=== PATIENT | male | born 1950 ===

== ENCOUNTER → 2023-05-28 10:26 | Outpatient (BNVA) | payer MEDICARE, OTHER, SELFPAY | PROVIDERS: PCP Nurse Practitioner Family; Visit Provider Nurse Practitioner Family | DX: M06.9 Rheumatoid arthritis, unspecified (principal); E11.9 Type 2 diabetes mellitus without complications; I10 Essential (primary) hypertension; R53.83 Other fatigue | CPT/HCPCS: 80053; 80061; 83036; 85025 ==

== ENCOUNTER → 2023-06-17 14:02 | Outpatient (BNVA) | payer MEDICARE, OTHER, SELFPAY | PROVIDERS: PCP Nurse Practitioner Family; Visit Provider Nurse Practitioner Family | DX: M05.79 Rheumatoid arthritis with rheumatoid factor of multiple sites without organ or systems involvement (principal) | CPT/HCPCS: 86140; 86431 ==

== ENCOUNTER 2023-06-22 14:33 | Outpatient (CLI) | payer MEDICARE, SELFPAY ==
--- NOTE | 2023-06-22 14:40 | XRR_ITS ---
PROCEDURE INFORMATION: Exam: XR Right Hand Exam date and time: 06/22/2023 2:44 PM Age: 73 years old Clinical indication: Pain; Hand; Bilateral; Additional info: M05.79 - rheumatoid arthritis with rheumatoid factor of m. . . TECHNIQUE: Imaging protocol: Radiologic exam of the right hand. Views: 3 or more views. COMPARISON: No relevant prior studies available. FINDINGS: Bones/joints: Moderate arthritis right 5th PIP joint. Mild arthritis right 3rd PIP and D IP joints with periarticular erosions involving these 2 joints. Mild arthritis right 2nd D IP joint with small periarticular erosion. Otherwise, unremarkable. Soft tissues: Otherwise, unremarkable soft tissues. Vasculature: Arterial calcification. XR/XR hand RT min 3V* [id number] IMPRESSION: 1. Arthritis as above. 2. Additional details as above.
--- NOTE | 2023-06-22 14:40 | XRR_ITS ---
PROCEDURE INFORMATION: Exam: XR Left Hand Exam date and time: 06/22/2023 2:44 PM Age: 73 years old Clinical indication: Pain; Hand; Bilateral; Additional info: M05.79 - rheumatoid arthritis with rheumatoid factor of m. . . TECHNIQUE: Imaging protocol: Radiologic exam of the left hand. Views: 3 or more views. COMPARISON: No relevant prior studies available. FINDINGS: Bones/joints: Severe arthritis left 5th PIP joint. Moderate arthritis left 4th PIP joint and left 2nd metacarpophalangeal joint. Mild arthritis left 2nd, 4th, and 5th DIP joints and the 1st left carpometacarpal articulation. A few mm lateral subluxation of the base of the 1st metacarpal. A few mm medial and palmar subluxation of the base of the left 2nd proximal phalanx. Otherwise, unremarkable. Soft tissues: Otherwise, unremarkable soft tissues. Vasculature: Arterial calcification. XR/XR hand LT min 3V* [id number] IMPRESSION: 1. Arthritis as above. 2. No other acute findings.
== END 2023-06-22 14:34 | disposition home or self-care (01) ==
LOC: RAD 14:37
PROVIDERS: PCP Nurse Practitioner Family; Visit Provider Nurse Practitioner Family
DX: M06.842 Other specified rheumatoid arthritis, left hand (principal); M06.841 Other specified rheumatoid arthritis, right hand
CPT/HCPCS: 73130

== ENCOUNTER 2023-10-12 13:00 | Outpatient (CLI) | payer MEDICARE, SELFPAY ==
--- NOTE | 2023-10-12 13:10 | USCV_ITS ---
Yahir Mccracken Age: 73 Gender: M : 1950 Exam Date: 10/12/2023 13:48 Ordering Phys: Clement De La Garza DO Technologist: [place] [facility] [place]: [place] pain PROCEDURES: The venous duplex Doppler examination of both lower extremities was performed in the standard fashion. The following venous structures were evaluated: common femoral vein, profunda vein, proximal portion of the greater saphenous vein, superficial femoral vein, and the popliteal vein. FINDINGS: Normal 2-D Doppler and augmentation and compressibility throughout the lower extremity venous structures. Additional imaging through the proximal calf veins also reveals no thrombus. Limited evaluation of the greater saphenous vein is patent with no thrombus. CONCLUSIONS No DVT bilateral lower extremities. Dr. Monse Anthony DO (Electronically Signed) Final Date: 12 October 2023 16:13 S
== END 2023-10-12 13:03 | disposition home or self-care (01) ==
PROVIDERS: PCP Nurse Practitioner Family; Visit Provider Family Medicine
DX: M79.604 Pain in right leg (principal)
CPT/HCPCS: 93970

== ENCOUNTER → 2023-11-02 14:22 | Outpatient (BNVA) | payer MEDICARE, SELFPAY | PROVIDERS: PCP Nurse Practitioner Family; Visit Provider Nurse Practitioner Family | DX: L29.0 Pruritus ani (principal) | CPT/HCPCS: 87177; 87209 ==

== ENCOUNTER → 2024-01-01 11:16 | Outpatient (BNVA) | payer MEDICARE, SELFPAY | PROVIDERS: PCP Nurse Practitioner Family; Visit Provider Nurse Practitioner Family | DX: M10.9 Gout, unspecified (principal); N39.0 Urinary tract infection, site not specified; R39.9 Unspecified symptoms and signs involving the genitourinary system | CPT/HCPCS: 81000; 84550; 87077; 87086; 87184 ==

== ENCOUNTER 2024-01-22 12:30 | Emergency (ER) | payer MEDICARE, SELFPAY ==
[2024-01-22] VITALS (9 sets, daily range): BP systolic 113–168; BP diastolic 68–95; PULSE 70–106; RESP 14–18; TEMP 37.3–37.9; O2SAT 92–99; BMI 27.3
--- NOTE | 2024-01-22 | USCV_ITS ---
Filipe Mccracken Age: 73 Gender: M : 1950 Exam Date: 01/22/2024 13:56 Ordering Phys: Mary Perez Technologist: USR [place] [facility] [place]: Risk Factors: Previous Vascular Surgery: RIGHT LEFT Waveform Velocity (cm/s) Velocity (cm/s) Waveform Triphasic 81.0 Iliac Prox Triphasic 100.0 Iliac Mid 99.3 Iliac Distal 88.0 AIRCRAFT REFUELLER 81.0 SFA Prox 81.0 SFA Mid 43.0 SFA Dist 78.0 POP 12.0 CHART COMPUTER 12.0 DPA FINDINGS Mild to moderate diffuse plaques in the iliac, femoral and popliteal arteries on the right side. Low amplitude monophasic waveforms in the posterior tibial and dorsalis pedis arteries on the right side CONCLUSIONS 1. Abnormal Doppler waveforms and velocities in the right infrapopliteal vessels suggesting high-grade stenosis in the popliteal infrapopliteal region. 2. Mild to moderate diffuse plaque in the iliac and femoral arteries on the right side with a normal Doppler waveforms and velocities, suggesting no significant arterial obstruction in at these vessels results Consider CTA or peripheral angiogram to better evaluate the arteries [facility] Final Radiology Report Call: [phone] assistance Online chat: [email or web address] Name: FILIPE MCCRACKEN Age: 73Years M Date: 01/22/2024 SSN: -- : 1950 Study: US DUPLEX EXTREM LOWER ARTERIES UNILAT OR [facility] Requesting Physician: Mary Perez Images: [id number] Add l Studies: Provided Clinical History: cold/diminished pulses CONFIDENTIALITY STATEMENT This report is intended only for use by the referring physician, and only in accordance with law. If you received this in error, call [phone]. Page 1 of 1 PROCEDURE INFORMATION: Exam: US Duplex Right Lower Extremity Arteries Or Arterial Bypass Grafts Exam date and time: 01/22/2024 1:56 PM Age: 73 years old Clinical indication: Pain; Leg, upper and leg, lower; Right; Additional info: Cold/diminished pulses TECHNIQUE: Imaging protocol: Right Real-time duplex scan of the arteries or arterial bypass grafts of the right lower extremity with 2-D drake scale, color Doppler flow and spectral waveform analysis. Images documented and saved. COMPARISON: No relevant prior studies available. FINDINGS: Right common femoral artery: No occlusion or significant stenosis. Normal waveform. No pseudoaneurysm in the inguinal region. Right superficial femoral artery: No occlusion or significant stenosis. Normal waveform. Right popliteal artery: No occlusion or significant stenosis. Normal waveform. Right calf/foot arteries: The right posterior tibial artery is occluded. Soft tissues: No hematoma or collection. IMPRESSION: Occluded posterior tibial artery. Thank you for allowing us to participate in the care of your patient. Dictated and Authenticated by: Mikel Lees MD Dr Achenkunju George MD [facility] Edited by: CV Personnel Generalist Manager (Electronically Signed) Final Date: 22 January 2024 15:49 Amended: 24 January 2024 07:10 C
--- NOTE | 2024-01-22 12:59 | ED_ITS ---
Documented by User: TEODORA Montaño 01/22/24 16:53 HPI - General Adult 2 General: Chief complaint: Extremity Problem,Nontraumatic Stated complaint: left arm pain Time Seen by Provider: 01/22/24 12:47 Source: patient Mode of arrival: EMS Limitations: no limitations History of Present Illness: Patient is a 73-year-old male presents to ED today via EMS for evaluation of joint pains and weakness to right leg. Patient first tells me he is here for complaints of gout/joint pains. He states he is having pain to his bilateral wrists, feet and ankles, bilateral shoulders, and left arm. Most of pain to left arm/wrist currently. Was recently placed on colchicine which helped temporarily but now pain is back. History of rheumatoid arthritis as well. He states he has had pain to these areas for a long time (years) but states they will flareup. Patient states his joint pain at this time is the same pain that he has always had although left wrist is worse. He has been on chronic steroids for the RA. When asked why he called an ambulance earlier today, he tells me that he was attempting to get out of bed and accidentally slid down the bed and onto the floor and was too weak to get up. He states he normally walks in his home with the help of a walker. He feels like the weakness is mainly to his right leg currently. Does report generalized leg weakness for a while now . Patient overall is a very poor historian. Onset (ago): hour(s) Severity: moderate Relieving factors: none Exacerbating factors: none Associated symptoms: Deny chest pain, dyspnea, headache(s) or rash Treatments prior to arrival: none Related Data Previous Rx's Medication Instructions Recorded colchicine 0.6 mg tablet 0.6 mg PO BID 5 days #10 tabs 01/01/24 oxycodone 10 mg tablet 10 mg PO Q12H PRN pain 30 days #60 01/02/24 tabs ciprofloxacin HCl 500 mg tablet 500 mg PO BID 7 days #14 tabs 01/04/24 prednisone 1 mg tablet 2 mg (2 x 1 mg) PO DAILY #60 tabs 01/20/24 Allergies Allergy/AdvReac Type Severity Reaction Status Date / Time No Known Allergies Allergy Verified 01/06/24 14:08 Review of Systems 2 Const: Denies: fever(s), chills or body aches Card: Denies: chest pain Resp: Denies: dyspnea GI: Denies: abdominal pain : Denies: flank pain or dysuria Musc: Reports: extremity pain and joint pain; Denies: neck pain, back pain, joint redness or joint warmth Skin/Breast: Denies: rash Neuro: Reports: weakness in extremities and difficulty walking; Denies: headache(s), numbness in extremities or sensory changes PFSH ED 2 PFSH: Medical History Irregular heart beat 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 Neuropathy bilateral hands, feet and legs Rheumatoid arthritis Surgical History History of spinal fusion L-3-5 History of bilateral knee replacement 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 Family History Father Lung cancer Social History Smoking and tobacco/nicotine status: former use of tobacco/nicotine Quit status (tobacco/nicotine): has quit using Former quit date comment: STOPPED 50YEARS AGO Alcohol intake: never Substance/Drug Use: never Adopted: No Caregiver/support person: No Lives independently: No Household members: spouse Marital status: service: No Current occupational status: retired and disabled Sexually active: Yes Do you think of yourself as: Straight/Heterosexual Current gender identity: Male Physical Exam 2 Const: COMMON NORMALS: no acute distress, average body habitus, patient oriented x3, no limitations, alert and well nourished GENERAL APPEARANCE: c ooperative ORIENTATION/CONSCIOUSNESS: Yes awake, Yes oriented to person, Yes oriented to place and Yes oriented to time HENMT: COMMON NORMALS: normocephalic and atraumatic HEAD & SCALP: normal to inspection, normocephalic and atraumatic Eye: GENERAL EYE: appearance normal, both eyes and all related structures Neck/C-Spine: COMMON NORMALS: full ROM GENERAL: Yes normal visual inspection Resp: COMMON NORMALS: normal respiratory effort and clear to auscultation bilaterally AUSCULTATION: clear to auscultation bilaterally Cardio: COMMON NORMALS: regular rate and regular rhythm RATE: regular rate RHYTHM: regular rhythm GI: COMMON NORMALS: Normal to inspection, nondistended, normoactive bowel sounds present, Soft to palpation and non-tender PALPATION: Yes Soft to palpation : COMMON NORMALS: Yes no CVA tenderness BLADDER/KIDNEY EXAM: Yes no CVA tenderness Back/Pelvis: COMMON NORMALS: no CVA tenderness and thoracic and lumbar spine normal to inspection Extremity: COMMON NORMALS: no joint enlargement, no clubbing, cyanosis or edema and no calf tenderness OTHER: bilateral feet are cool to the touch with the R being significantly colder; it does have dusky appearance with sluggish cap refill-patient states his feet are always cold; I can appreciate/palpate DP/PT pulses on L foot but cannot on R- having nurse grab doppler; he maintains full ROM of bilateral LEs; no evidence for infection; no edema; sensation appears intact Neuro: COMMON NORMALS: patient oriented x3, moves all extremities, no focal motor deficits and no sensory deficits noted SENSORIUM/ORIENTATION: Yes alert, Yes oriented to person, Yes oriented to place and Yes oriented to time Course 2 Consultations: Consultation #1: Dr. Cash-recommending CTA chest (evaluate for aneurysmal dilatation seen on CXR) as well as CTA abdominal aorta with runoff to evaluate for the right limb ischemia; agreed with decision to start heparin; will come evaluate patient here in ED Vital Signs: Vital signs: Vital Signs Temperature 100.2 F H 01/22/24 19:53 Pulse Rate 89 01/22/24 21:41 Respiratory Rate 18 01/22/24 21:41 Blood Pressure 123/79 01/22/24 21:41 Pulse Oximetry 93 01/22/24 21:41 Oxygen Delivery Me thod Room Air 01/22/24 21:41 MDM - General Adult Medical Decision Making Patient 73-year-old male with multiple complaints one of which is pain and weakness involving his right leg. Clinically patient's right foot is cool to the touch and dusky in appearance. I am not able to palpate DP/PT pulses. Arterial ultrasound obtained and shows an occluded posterior tibial artery. I did have Dr. Brink also consult on patient. Patient was started on heparin. I contacted Dr. Cash who is recommending CT imaging. He is CXR did show aneurysmal dilatation to his aorta. We will scan his chest and abdominal aorta with runoff and contacted Dr. Cash with these results. He is reportedly going to see patient here in the ED. patient also complaining of gout-like joint pain mainly to his left wrist. He reportedly has had similar symptoms previously. He has not had any recent injury/wounds to the joint. Based on history I would suspect this is gout over a septic arthritis. He does have a significant elevation in his white count. Some of this may be secondary to his recent steroid use. Some of this also could be secondary to stress associated with an ischemic limb. Chemistry showing elevated glucose with probable pseudohyponatremia. He is not a known diabetic. At this time we will transfer care to Dr. Brink as he has also assessed patient. Awaiting results of CT imaging at this time ES Medical Records I reviewed the patient's medical records. Lab Data I reviewed the patient's lab results. 01/22/24 14:00 01/22/24 14:00 Radiology Impressions Duplex Scan Lower Extremity Artery 01/22/24 13:30 IMPRESSION: Occluded posterior tibial artery. Chest X-Ray 01/22/24 14:10 IMPRESSION: No acute abnormality. Severe ectasia and tortuosity of the thoracic aorta with aneurysmal or near aneurysmal dilatation of the ascending aorta. Severe shoulder arthropathy bilaterally as above. Chest CTA 01/22/24 15:44 IMPRESSION: Multivessel atherosclerotic disease which involves the coronary arteries. No evidence for thoracic aorta dilatation or aneurysm. COMMENTS: Consistent with the [employer]'s Incidental Findings Committee white paper (J Am Libby Radiol 2018): Any incidental renal lesion less than 1 cm or classified as too small to characterize, or any incidental cystic renal lesion characterized as simple-appearing, is likely benign. No follow-up imaging is recommended for these lesions per consensus recommendations based on imaging criteria. Aorta w/Runoff CTA 01/22/24 15:48 IMPRESSION: Multivessel atherosclerotic disease with multiple regions of severe stenosis and occlusion as described in detail above. Wrist X-Ray 01/22/24 19:35 IMPRESSION: There is edema in the soft tissues. Laboratory Results WBC 24.69 10^3/uL (3.29-11.43) H 01/22/24 14:00 RBC 4.49 10^6/uL (3.85-5.65) 01/22/24 14:00 Hgb 12.50 g/dL (11.27-16.99) 12/06/24 14:00 Hct 40.6 % (37-53) 01/22/24 14:00 MCV 90.4 fl (82-101) 01/22/24 14:00 MCH 27.8 pg (27-33) 01/22/24 14:00 MCHC 30.8 g/dL (30-55) 01/22/24 14:00 RDW 14.3 % (12.1-15.1) 01/22/24 14:00 Plt Count 343 10^3/cmm (157-399) 01/22/24 14:00 MPV 8.7 fL (7.4-10.4) 01/22/24 14:00 Neut % (Auto) 86.6 % 01/22/24 14:00 Lymph % (Auto) 5.2 % 01/22/24 14:00 [place] % (Auto) 7.5 % 01/22/24 14:00 Eos % (Auto) 0.0 % 01/22/24 14:00 Baso % (Auto) 0.1 % 01/22/24 14:00 Neut # (Auto) 21.35 10^3/uL (1.8-7.7) H 01/22/24 14:00 Lymph # (Auto) 1.3 10^3/uL (0.8-4.8) 01/22/24 14:00 [place] # (Auto) 1.9 10^3/uL (0.2-0.9) H 01/22/24 14:00 Eos # (Auto) 0.0 10^3/uL (0.0-0.8) 01/22/24 14:00 Baso # (Auto) 0.0 10^3/uL (0.0-0.1) 01/22/24 14:00 Nucleated RBC % (auto) 0 % 01/22/24 14:00 Nucleated RBCs # 0.0 /100WBC 01/22/24 14:00 ESR 72 mm/hr (0-10) H 01/22/24 14:00 APTT 40.3 SECONDS (23.9-36.7) H 01/22/24 21:41 Sodium 127 mmol/L (136-145) L 01/22/24 14:00 Potassium 4.1 mmol/L (3.5-5.1) 01/22/24 14:00 Chloride 91 mmol/L (98-107) L 01/22/24 14:00 Carbon Dioxide 23 mmol/L (22-29) 01/22/24 14:00 Anion Gap 17.1 (5-19) 01/22/24 14:00 BUN 29 mg/dL (8-23) H 01/22/24 14:00 Creatinine 1.0 mg/dL (0.7-1.2) 01/22/24 14:00 GFR Calculation Not Reportable 01/22/24 14:00 Glucose 189 mg/dL (65-115) H 01/22/24 14:00 Calculated Osmolality 275 mOsm/kg (285-295) L 01/22/24 14:00 Lactic Acid 1.7 mmol/L (0.5-2.2) 01/22/24 14:00 Uric Acid 5.3 mg/dL (3.4-7.0) 01/22/24 14:00 Calcium 9.3 mg/dL (8.5-10.5) 01/22/24 14:00 Total Bilirubin 1.0 mg/dL (0.15-1.2) 01/22/24 14:00 AST 13 U/L (0-40) 01/22/24 14:00 ALT 11 U/L (0-41) 01/22/24 14:00 Alkaline Phosphatase 99 U/L (40-130) 01/22/24 14:00 C-Reactive Protein 231.5 mg/L (0.0-4.9) H 01/22/24 14:00 Total Protein 7.4 g/dL (6.6-8.7) 01/22/24 14:00 Albumin 3.6 g/dL (3.5-5.2) 01/22/24 14:00 Globulin 3.8 g/dL (1.3-4.6) 01/22/24 14:00 Procalcitonin 2.47 ng/mL (0-0.5) H 01/22/24 14:00 Urine Color [place] (Yellow) A 01/22/24 14:53 Urine Appearance Clear (CLEAR) 01/22/24 14:53 Urine pH 5.5 (5-7) 01/22/24 14:53 Ur Specific [place] 1.021 (1.005-1.030) 01/22/24 14:53 Urine Protein 2+ (Negative) A 01/22/24 14:53 Urine Glucose (UA) Negative (Normal) 01/22/24 14:53 Urine Ketones Negative (Negative) 01/22/24 14:53 Urine Blood Trace (Negative) A 01/22/24 14:53 Urine Nitrate Negative (Negative) 01/22/24 14:53 Urine Bilirubin Negative (Negative) 01/22/24 14:53 Urine Urobilinogen 1.0 mg/dL (Negative) 01/22/24 14:53 Ur Leukocyte Esterase Trace (Negative) A 01/22/24 14:53 Urine RBC 3-5 /hpf (0-2) 01/22/24 14:53 Urine WBC 0-5 /hpf (0-5) 01/22/24 14:53 Ur Squamous Epith Cells 0-5 /hpf (0-5) 01/22/24 14:53 Amorphous Sediment Not Reportable 01/22/24 14:53 Urine Bacteria 1+ /hpf (NONE) H 01/22/24 14:53 Hyaline Casts 6.61 /lpf 01/22/24 14:53 Discharge Plan Discharge Patient Disposition: Xfer Short-Term Hosp Clinical Impression: Infection of left wrist, PAD (peripheral artery disease) Condition: Stable Referrals: Ivory Diego FNP [Primary Care Provider] - Coding Level of Care Code ED Dental Sales Representative for Chg Fwd Documented by User: Patrica Brink MD 01/22/24 22:23 HPI - General Adult 2 General: Chief complaint: Extremity Problem,Nontraumatic Stated complaint: left arm pain Time Seen by Provider: 01/22/24 12:47 Related Data Previous Rx's Medication Instructions Recorded colchicine 0.6 mg tablet 0.6 mg PO BID 5 days #10 tabs 01/01/24 oxycodone 10 mg tablet 10 mg PO Q12H PRN pain 30 days #60 01/02/24 tabs ciprofloxacin HCl 500 mg tablet 500 mg PO BID 7 days #14 tabs 01/04/24 prednisone 1 mg tablet 2 mg (2 x 1 mg) PO DAILY #60 tabs 01/20/24 Allergies Allergy/AdvReac Type Severity Reaction Status Date / Time No Known Allergies Allergy Verified 01/06/24 14:08 PFSH ED 2 PFSH: Medical History Irregular heart beat 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 Neuropathy bilateral hands, feet and legs Rheumatoid arthritis Surgical History History of spinal fusion L-3-5 History of bilateral knee replacement 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 Family History Father Lung cancer Social History Smoking and tobacco/nicotine status: former use of tobacco/nicotine Quit status (tobacco/nicotine): has quit using Former quit date comment: STOPPED 50YEARS AGO Alcohol intake: never Substance/Drug Use: never Adopted: No Caregiver/support person: No Lives independently: No Household members: spouse Marital status: service: No Current occupational status: retired and disabled Sexually active: Yes Do you think of yourself as: Straight/Heterosexual Current gender identity: Male Course 2 Vital Signs: Vital signs: Vital Signs Temperature 100.2 F H 01/22/24 19:53 Pulse Rate 89 01/22/24 21:41 Respiratory Rate 18 01/22/24 21:41 Blood Pressure 123/79 01/22/24 21:41 Pulse Oximetry 93 01/22/24 21:41 Oxygen Delivery Me thod Room Air 01/22/24 21:41 MDM - General Adult Medical Decision Making Patient 73-year-old male with multiple complaints one of which is pain and weakness involving his right leg. Clinically patient's right foot is cool to the touch and dusky in appearance. I am not able to palpate DP/PT pulses. Arterial ultrasound obtained and shows an occluded posterior tibial artery. I did have Dr. Brink also consult on patient. Patient was started on heparin. I contacted Dr. Cash who is recommending CT imaging. He is CXR did show aneurysmal dilatation to his aorta. We will scan his chest and abdominal aorta with runoff and contacted Dr. Cash with these results. He is reportedly going to see patient here in the ED. patient also complaining of gout-like joint pain mainly to his left wrist. He reportedly has had similar symptoms previously. He has not had any recent injury/wounds to the joint. Based on history I would suspect this is gout over a septic arthritis. He does have a significant elevation in his white count. Some of this may be secondary to his recent steroid use. Some of this also could be secondary to stress associated with an ischemic limb. Chemistry showing elevated glucose with probable pseudohyponatremia. He is not a known diabetic. At this time we will transfer care to Dr. Brink as he has also assessed patient. Awaiting results of CT imaging at this time ES Patient presents here with peripheral artery disease aortic runoff did show disease has had pain for weeks did have him on a heparin drip here he also has concern for septic joint to the left wrist had spoke to Dr. Velazquez who recommended transfer for hand I have spoken to Ashley Ge will transfer there for higher level of care for vascular and hand surgery Lab Data 01/22/24 14:00 01/22/24 14:00 Radiology Impressions Duplex Scan Lower Extremity Artery 01/22/24 13:30 IMPRESSION: Occluded posterior tibial artery. Chest X-Ray 01/22/24 14:10 IMPRESSION: No acute abnormality. Severe ectasia and tortuosity of the thoracic aorta with aneurysmal or near aneurysmal dilatation of the ascending aorta. Severe shoulder arthropathy bilaterally as above. Chest CTA 01/22/24 15:44 IMPRESSION: Multivessel atherosclerotic disease which involves the coronary arteries. No evidence for thoracic aorta dilatation or aneurysm. COMMENTS: Consistent with the [place] [employer]'s Incidental Findings Committee white paper (J Am Libby Radiol 2018): Any incidental renal lesion less than 1 cm or classified as too small to characterize, or any incidental cystic renal lesion characterized as simple-appearing, is likely benign. No follow-up imaging is recommended for these lesions per consensus recommendations based on imaging criteria. Aorta w/Runoff CTA 01/22/24 15:48 IMPRESSION: Multivessel atherosclerotic disease with multiple regions of severe stenosis and occlusion as described in detail above. Wrist X-Ray 01/22/24 19:35 IMPRESSION: There is edema in the soft tissues. Laboratory Results WBC 24.69 10^3/uL (3.29-11.43) H 01/22/24 14:00 RBC 4.49 10^6/uL (3.85-5.65) 01/22/24 14:00 Hgb 12.50 g/dL (11.27-16.99) 01/22/24 14:00 Hct 40.6 % (37-53) 01/22/24 14:00 MCV 90.4 fl (82-101) 01/22/24 14:00 MCH 27.8 pg (27-33) 01/22/24 14:00 MCHC 30.8 g/dL (30-55) 01/22/24 14:00 RDW 14.3 % (12.1-15.1) 01/22/24 14:00 Plt Count 343 10^3/cmm (157-399) 01/22/24 14:00 MPV 8.7 fL (7.4-10.4) 01/22/24 14:00 Neut % (Auto) 86.6 % 01/22/24 14:00 Lymph % (Auto) 5.2 % 01/22/24 14:00 [place] % (Auto) 7.5 % 01/22/24 14:00 Eos % (Auto) 0.0 % 01/22/24 14:00 Baso % (Auto) 0.1 % 01/22/24 14:00 Neut # (Auto) 21.35 10^3/uL (1.8-7.7) H 01/22/24 14:00 Lymph # (Auto) 1.3 10^3/uL (0.8-4.8) 01/22/24 14:00 [place] # (Auto) 1.9 10^3/uL (0.2-0.9) H 01/22/24 14:00 Eos # (Auto) 0.0 10^3/uL (0.0-0.8) 01/22/24 14:00 Baso # (Auto) 0.0 10^3/uL (0.0-0.1) 01/22/24 14:00 Nucleated RBC % (auto) 0 % 01/22/24 14:00 Nucleated RBCs # 0.0 /100WBC 01/22/24 14:00 ESR 72 mm/hr (0-10) H 01/22/24 14:00 APTT 40.3 SECONDS (23.9-36.7) H 01/22/24 21:41 Sodium 127 mmol/L (136-145) L 01/22/24 14:00 Potassium 4.1 mmol/L (3.5-5.1) 01/22/24 14:00 Chloride 91 mmol/L (98-107) L 01/22/24 14:00 Carbon Dioxide 23 mmol/L (22-29) 01/22/24 14:00 Anion Gap 17.1 (5-19) 01/22/24 14:00 BUN 29 mg/dL (8-23) H 01/22/24 14:00 Creatinine 1.0 mg/dL (0.7-1.2) 01/22/24 14:00 GFR Calculation Not Reportable 01/22/24 14:00 Glucose 189 mg/dL (65-115) H 01/22/24 14:00 Calculated Osmolality 275 mOsm/kg (285-295) L 01/22/24 14:00 Lactic Acid 1.7 mmol/L (0.5-2.2) 01/22/24 14:00 Uric Acid 5.3 mg/dL (3.4-7.0) 01/22/24 14:00 Calcium 9.3 mg/dL (8.5-10.5) 01/22/24 14:00 Total Bilirubin 1.0 mg/dL (0.15-1.2) 01/22/24 14:00 AST 13 U/L (0-40) 01/22/24 14:00 ALT 11 U/L (0-41) 01/22/24 14:00 Alkaline Phosphatase 99 U/L (40-130) 01/22/24 14:00 C-Reactive Protein 231.5 mg/L (0.0-4.9) H 01/22/24 14:00 Total Protein 7.4 g/dL (6.6-8.7) 01/22/24 14:00 Albumin 3.6 g/dL (3.5-5.2) 01/22/24 14:00 Globulin 3.8 g/dL (1.3-4.6) 01/22/24 14:00 Procalcitonin 2.47 ng/mL (0-0.5) H 01/22/24 14:00 Urine Color [place] (Yellow) A 01/22/24 14:53 Urine Appearance Clear (CLEAR) 01/22/24 14:53 Urine pH 5.5 (5-7) 01/22/24 14:53 Ur Specific [place] 1.021 (1.005-1.030) 01/22/24 14:53 Urine Protein 2+ (Negative) A 01/22/24 14:53 Urine Glucose (UA) Negative (Normal) 01/22/24 14:53 Urine Ketones Negative (Negative) 01/22/24 14:53 Urine Blood Trace (Negative) A 01/22/24 14:53 Urine Nitrate Negative (Negative) 01/22/24 14:53 Urine Bilirubin Negative (Negative) 01/22/24 14:53 Urine Urobilinogen 1.0 mg/dL (Negative) 01/22/24 14:53 Ur Leukocyte Esterase Trace (Negative) A 01/22/24 14:53 Urine RBC 3-5 /hpf (0-2) 01/22/24 14:53 Urine WBC 0-5 /hpf (0-5) 01/22/24 14:53 Ur Squamous Epith Cells 0-5 /hpf (0-5) 01/22/24 14:53 Amorphous Sediment Not Reportable 01/22/24 14:53 Urine Bacteria 1+ /hpf (NONE) H 01/22/24 14:53 Hyaline Casts 6.61 /lpf 01/22/24 14:53 All radiology interpretation(s) finalized by discharge Discharge Plan Discharge Patient Disposition: Xfer Short-Term Hosp Clinical Impression: Infection of left wrist, PAD (peripheral artery disease) Condition: Stable Referrals: Ivory Diego FNP [Primary Care Provider] - Coding Level of Care Code ED Dental Sales Representative for [place]
--- NOTE | 2024-01-22 13:30 | USCV_ITS ---
Filipe Mccracken Age: 73 Gender: M : 1950 Exam Date: 01/22/2024 13:56 Ordering Phys: Mary Perez Technologist: [facility] Exam Location: [facility] [place] Indication: Risk Factors: Previous Vascular Surgery: RIGHT LEFT Waveform Velocity (cm/s) Velocity (cm/s) Waveform Triphasic 81.0 Iliac Prox Triphasic 100.0 Iliac Mid 99.3 Iliac Distal 88.0 WET PRIMER POWDER BLENDER 81.0 SFA Prox 81.0 SFA Mid 43.0 SFA Dist 78.0 POP 12.0 SULFURIC ACID PLANT OPERATOR 12.0 DPA FINDINGS Mild to moderate diffuse plaques in the iliac, femoral and popliteal arteries on the right side. Low amplitude monophasic waveforms in the posterior tibial and dorsalis pedis arteries on the right side CONCLUSIONS 1. Abnormal Doppler waveforms and velocities in the right infrapopliteal vessels suggesting high-grade stenosis in the popliteal infrapopliteal region. 2. Mild to moderate diffuse plaque in the iliac and femoral arteries on the right side with a normal Doppler waveforms and velocities, suggesting no significant arterial obstruction in at these vessels results Consider CTA or peripheral angiogram to better evaluate the arteries [facility] Final Radiology Report Call: [phone] assistance Online chat: [email or web address] Name: FILIPE MCCRACKEN Age: 73Years M Date: 01/22/2024 SSN: -- : 1950 Study: US DUPLEX EXTREM LOWER ARTERIES UNILAT OR [facility] Requesting Physician: Mary Perez Images: [id number] Add l Studies: Provided Clinical History: cold/diminished pulses CONFIDENTIALITY STATEMENT This report is intended only for use by the referring physician, and only in accordance with law. If you received this in error, call [phone]. Page 1 of 1 PROCEDURE INFORMATION: Exam: US Duplex Right Lower Extremity Arteries Or Arterial Bypass Grafts Exam date and time: 01/22/2024 1:56 PM Age: 73 years old Clinical indication: Pain; Leg, upper and leg, lower; Right; Additional info: Cold/diminished pulses TECHNIQUE: Imaging protocol: Right Real-time duplex scan of the arteries or arterial bypass grafts of the right lower extremity with 2-D drake scale, color Doppler flow and spectral waveform analysis. Images documented and saved. COMPARISON: No relevant prior studies available. FINDINGS: Right common femoral artery: No occlusion or significant stenosis. Normal waveform. No pseudoaneurysm in the inguinal region. Right superficial femoral artery: No occlusion or significant stenosis. Normal waveform. Right popliteal artery: No occlusion or significant stenosis. Normal waveform. Right calf/foot arteries: The right posterior tibial artery is occluded. Soft tissues: No hematoma or collection. IMPRESSION: Occluded posterior tibial artery. Thank you for allowing us to participate in the care of your patient. Dictated and Authenticated by: Mikel Lees MD Dr Achenkunju George MD [facility] Edited by: CV Metal Box Maker (Electronically Signed) Final Date: 22 January 2024 15:49 Amended: 24 January 2024 07:10 C
[2024-01-22 14:08] LABS: Basophils % 0.1 %; Hematocrit 40.6 % (37-53); Lymphocytes # 1.3 10^3/uL (0.8-4.8); Lymphocytes % 5.2 %; Mean Corpuscular HGB Conc 30.8 g/dL (30-55); Mean Corpuscular Hemoglobin 27.8 pg (27-33); Mean Corpuscular Volume 90.4 fl (82-101); Mean Platelet Volume 8.7 fL (7.4-10.4); Monocytes # 1.9 10^3/uL (0.2-0.9); Monocytes % 7.5 %; Neutrophils # 21.35 10^3/uL (1.8-7.7); Neutrophils % 86.6 %; Nucleated Red Blood Cells % 0 %; Platelet Count 343 10^3/cmm (157-399); Red Blood Count 4.49 10^6/uL (3.85-5.65); Red Cell Distribution Width 14.3 % (12.1-15.1); White Blood Count 24.69 10^3/uL (3.29-11.43)
--- NOTE | 2024-01-22 14:10 | XR_ITS ---
WS: [id number] XR chest 1V portable [id number] REASON FOR EXAM: weakness FINDINGS: Severe tortuosity and ectasia of the thoracic aorta aneurysmal or near aneurysmal dilatation of the a scending aorta. The heart is not significantly enlarged. There is calcified granulomatous disease bilaterally. There is no acute pulmonary parenchymal or pleural abnormality. 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 XR/XR chest 1V portable [id number] IMPRESSION: No acute abnormality. Severe ectasia and tortuosity of the thoracic aorta with aneurysmal or near ane urysmal dilatation of the ascending aorta. Severe shoulder arthropathy bilaterally as above.
[2024-01-22 14:24] LABS: Alanine Aminotransferase 11 U/L (0-41); Albumin Level 3.6 g/dL (3.5-5.2); Alkaline Phosphatase 99 U/L (40-130); Anion Gap 17.1 (5-19); Aspartate Amino Transferase 13 U/L (0-40); Blood Urea Nitrogen 29 mg/dL (8-23); Calcium 9.3 mg/dL (8.5-10.5); Carbon Dioxide 23 mmol/L (22-29); Chloride 91 mmol/L (98-107); Creatinine Clr Calc Pharmacy 67.5572; Globulin 3.8 g/dL (1.3-4.6); Glucose 189 mg/dL (65-115); Osmolality Calculated 275 mOsm/kg (285-295); Potassium 4.1 mmol/L (3.5-5.1); Sodium 127 mmol/L (136-145); Total Protein 7.4 g/dL (6.6-8.7)
[2024-01-22 15:01] LABS: Bilirubin Urine Negative (Negative); Blood Urine Trace (Negative); Glucose Urine UA Negative (Normal); Ketones Urine Negative (Negative); Leukocyte Esterase Urine Trace (Negative); Nitrate Urine Negative (Negative); Protein Urine 2+ (Negative); Specific Gravity, Urine 1.021 (1.005-1.030); Urine Appearance Clear (CLEAR); pH Urine 5.5 (5-7)
[2024-01-22 15:03] LABS: Add Urine Microscopic? YES; Hyaline Casts Urine 6.61 /lpf; Squamous Epithelial Cell Urine 0-5 /hpf (0-5); WBC Urine 0-5 /hpf (0-5)
[2024-01-22 15:16] LABS: Bacteria Urine 1+ /hpf; UA Slide Review UA Slide Review Perf; Urine Color Orange (Yellow)
--- NOTE | 2024-01-22 15:44 | CTR_ITS ---
PROCEDURE INFORMATION: Exam: CTA Chest With Contrast Exam date and time: 01/22/2024 5:01 PM Age: 73 years old Clinical indication: Aneurysmal dilatation of aorta on cxr TECHNIQUE: Imaging protocol: Computed tomographic angiography of the chest with contrast. Exam focused on the arteries. 3D rendering (Not supervised by radiologist): MIP and/or 3D reconstructed images were created by the technologist. Radiation optimization: All CT scans at this facility use at least one of these dose optimization techniques: automated exposure control; mA and/or kV adjustment per patient size (includes targeted exams where dose is matched to clinical indication); or iterative reconstruction. Contrast material: OMNIPAQUE 350; Contrast volume: 70 ml; Contrast route: INTRAVENOUS (IV); COMPARISON: CR XR chest 1V portable [id number] 01/22/2024 3:04 PM RADIATION DOSE METRICS: Total DLP (mGy-cm): 1028.15 FINDINGS: Pulmonary arteries: Normal. No pulmonary emboli. Aorta: Aortic root is normal in caliber measuring 3.7 cm. Ascending thoracic aorta is normal in caliber measuring 3.5 cm. Descending thoracic aorta is normal in caliber measuring 2.8 cm. No evidence for thoracic aorta dilatation or aneurysm. Thoracic aorta is mildly tortuous. Lungs: Unremarkable. No consolidation. No masses. Pleural spaces: Unremarkable. No pneumothorax. No pleural effusion. Heart: Unremarkable. No cardiomegaly. No pericardial effusion. Coronary arteries: Multivessel atherosclerotic disease which involves the coronary arteries. There is atherosclerotic plaque in the aortic arch without significant stenosis. Lymph nodes: Unremarkable. No enlarged lymph nodes. Kidneys: 10 mm cyst off the lateral aspect of the right kidney. Bones/joints: There are severe degenerative changes across the glenohumeral joints. Degenerative changes are present in the visualized spine. Soft tissues: Unremarkable. CT/CT angio chest [id number] IMPRESSION: Multivessel atherosclerotic disease which involves the coronary arteries. No evidence for thoracic aorta dilatation or aneurysm. COMMENTS: Consistent with the [employer]'s Incidental Findings Committee white paper (J Am Libby Radiol 2018): Any incidental renal lesion less than 1 cm or classified as too small to characterize, or any incidental cystic renal lesion characterized as simple-appearing, is likely benign. No follow-up imaging is recommended for these lesions per consensus recommendations based on imaging criteria.
--- NOTE | 2024-01-22 15:48 | CTR_ITS ---
PROCEDURE INFORMATION: Exam: CTA Abdominal Aorta and Bilateral Lower Extremities (Run-off) With Contrast Exam date and time: 01/22/2024 5:05 PM Age: 73 years old Clinical indication: Rle swelling and pain. Bilateral tka; Concern for ischemia. TECHNIQUE: Imaging protocol: Computed tomographic angiography of the of the abdominal aorta, pelvis and bilateral lower extremities with contrast. 3D rendering (Not supervised by radiologist): MIP and/or 3D reconstructed images were created by the technologist. Radiation optimization: All CT scans at this facility use at least one of these dose optimization techniques: automated exposure control; mA and/or kV adjustment per patient size (includes targeted exams where dose is matched to clinical indication); or iterative reconstruction. Contrast material: OMNI 350; Contrast volume: 100 ml; Contrast route: INTRAVENOUS (IV); COMPARISON: [place] [id number] 01/22/2024 1:56 PM RADIATION DOSE METRICS: Total DLP (mGy-cm): 1102.36 FINDINGS: Aorta: Scattered atherosclerotic plaque without significant stenosis. No aortic aneurysm. No aortic dissection. Celiac trunk and mesenteric arteries: No occlusion or significant stenosis. Renal arteries: There is atherosclerotic plaque in the proximal right renal artery with severe stenosis. Atherosclerotic plaque at the origin of the left renal artery results in [id number] stenosis. Right iliac arteries: There is atherosclerotic plaque the right common iliac and external iliac arteries without significant stenosis. Atherosclerotic plaque in the right internal iliac artery results in regions of mild and moderate stenosis. Right femoral/popliteal arteries: There is atherosclerotic plaque in the right superficial femoral artery with regions of mild and moderate stenosis. Right popliteal artery is obscured by artifact from the right total knee replacement. Right infrapopliteal arteries: Atherosclerotic plaque throughout the right anterior tibialis and posterior tibialis arteries with regions of severe stenosis and occlusion. There is atherosclerotic plaque in the right peroneal artery with regions of moderate stenosis. Evaluation is limited secondary to the small caliber of this vessel and calcified plaque. Left iliac arteries: There is atherosclerotic plaque in the left common and external iliac arteries without significant stenosis. There is atherosclerotic plaque in the left internal iliac artery with severe stenosis proximally. Left femoral/popliteal arteries: There is atherosclerotic plaque in the left superficial femoral artery with regions of mild and moderate stenosis. Distal most aspect is obscured by artifact. Popliteal artery is obscured by artifact from the left total knee replacement. Left infrapopliteal arteries: There is atherosclerotic plaque throughout with regions of severe stenosis and occlusion. Coronary arteries: Multivessel atherosclerotic disease which involves the coronary arteries. Liver: No mass. Diaphragm: Small hiatal hernia. Gallbladder and biliary ducts: Unremarkable. No calcified stones. No ductal dilation. Pancreas: Mild fatty atrophy of the pancreas. Spleen: Normal. No splenomegaly. Adrenal glands: Bilateral adrenal glands are full appearing without a discrete mass lesion seen. Kidneys and ureters: Normal. No mass. Stomach and bowel: Unremarkable. No obstruction. No mucosal thickening. Appendix: No evidence of appendicitis. Urinary bladder: Unremarkable. No mass. Reproductive: Unremarkable as visualized. Intraperitoneal space: Unremarkable. No free air. No significant fluid collection. Lymph nodes: No lymphadenopathy. Bones/joints: Bilateral total knee replacements. Distal femoral and proximal tibial components appear intact and in satisfactory alignment. Soft tissues: There are benign-appearing soft tissue calcifications. CT/CT angio abd aorta runof [id number] IMPRESSION: Multivessel atherosclerotic disease with multiple regions of severe stenosis and occlusion as described in detail above.
[2024-01-22] MEDS: heparin 5,000 unit/mL INJ 1 mL IVP (15:53)
[2024-01-22 15:54] LABS: Erythrocyte Sedimentation Rate 72 mm/hr (0-10)
[2024-01-22] MEDS: heparin drip 25,000 UNIT/500 ML PREMIX 23 UNIT IV (15:54)
[2024-01-22 16:11] LABS: Lactic Sepsis W/Reflex 1.7 mmol/L (0.5-2.2)
[2024-01-22 16:12] LABS: C Reactive Protein 231.5 mg/L (0.0-4.9); Uric Acid 5.3 mg/dL (3.4-7.0)
[2024-01-22 16:18] LABS: Procalcitonin 2.47 ng/mL (0-0.5)
[2024-01-22] MEDS: iohexol 350 mg/mL 500 mL Btl (per mL) IV ×2 (17:03→17:04)
--- NOTE | 2024-01-22 19:35 | XRR_ITS ---
PROCEDURE INFORMATION: Exam: XR Left Wrist Exam date and time: 01/22/2024 7:43 PM Age: 73 years old Clinical indication: Patient HX: C/O left wrist pain with swelling. History of gout. ; Additional info: Injury TECHNIQUE: Imaging protocol: Radiologic exam of the left wrist. Views: 3 or more views. COMPARISON: No relevant prior studies available. FINDINGS: Bones/joints: Multi-articular primary osteoarthritic changes including joint space narrowing, subchondral cystic/sclerotic changes, and marginal osteophyte formations. Soft tissues: There is edema in the soft tissues. There are benign-appearing soft tissue calcifications. Other findings: Non acute findings as described above. XR/XR wrist LT min 3V* [id number] IMPRESSION: There is edema in the soft tissues.
[2024-01-22] MEDS: acetaminophen 500 mg Tablet 1000 MG PO (20:29)
[2024-01-22 21:56] LABS: Partial Thromboplastin Time 40.3 SECONDS (23.9-36.7)
--- NOTE | 2024-01-22 22:34 | P.CONIM_ITS ---
Providers/Reason For Consult 2 Consulting Physician/Specialty*: Julio Cash MD Reason for Consult*: Peripheral arterial disease Abnormal vascular study Abnormal CTA with runoff Leg pain more on right than left Requesting Physician: Dr. Escobar Primary Care Provider: ROSALVA Jean History of Present Illness History of Present Illness Yahir Mccracken is a 73 year old male who is not a good historian came in with generalized pain aches in the wrist hands and legs with prior history of gout arthritis and rheumatoid arthritis as per patient. He mentioned that for the past few weeks he has not been able to walk much because of painful joints, it is difficult for him to bend and move his right leg. Both feet are cool to touch but no obvious ulceration . Patient mentioned that he has neuropathy. Doppler study revealed patent large arteries of the lower leg except occluded posterior tibial in the right leg. CTA with runoff was performed which was suggestive of multilevel severe peripheral arterial disease starting from both SFA to anterior and posterior tibial, arteries bilaterally which appear to be calcified mild to moderate and moderate to severely stenotic. Patient is able to feel sensation in both feet. We have been asked to assist in patient's care. He denies chest pain PND orthopnea he is non-smoker nondiabetic he denies nonhealing wound on any extremities. He admits to generalized aches pain arthritis and shoulders pains. Medications/Allergies Home Medications Medication Instructions Recorded Confirmed Last Taken Type colchicine 0.6 mg tablet 0.6 mg PO BID 5 days #10 tabs 01/01/24 01/06/24 Unknown Rx oxycodone 10 mg tablet 10 mg PO Q12H PRN pain 30 days #60 01/02/24 01/06/24 Unknown Rx tabs ciprofloxacin HCl 500 mg tablet 500 mg PO BID 7 days #14 tabs 01/04/24 01/06/24 Unknown Rx prednisone 1 mg tablet 2 mg (2 x 1 mg) PO DAILY #60 tabs 01/20/24 Unknown Rx Allergies Allergy/AdvReac Type Severity Reaction Status Date / Time No Known Allergies Allergy Verified 01/06/24 14:08 Current Medications Generic Name Dose Route Start Last Admin Trade Name Freq PRN Reason Stop Dose Admin Heparin Sodium/Sodium Chloride 25,000 unit in 500 mls @ 0 mls/hr 01/22/24 15:45 01/22/24 15:54 Heparin Drip IV 14.09 unit/kg/hr CONT CHRISTELLE 23 mls/hr Administration Protocol Per Protocol PFSH Acute 2 PFSH: Medical History Irregular heart beat 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 Neuropathy bilateral hands, feet and legs Rheumatoid arthritis Surgical History History of spinal fusion L-3-5 History of bilateral knee replacement 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 Family History Father Lung cancer Social History Smoking and tobacco/nicotine status: former use of tobacco/nicotine Quit status (tobacco/nicotine): has quit using Former quit date comment: STOPPED 50YEARS AGO Alcohol intake: never Substance/Drug Use: never Adopted: No Caregiver/support person: No Lives independently: No Household members: spouse Marital status: service: No Current occupational status: retired and disabled Sexually active: Yes Do you think of yourself as: Straight/Heterosexual Current gender identity: Male Vitals/I&O/Wt Last Vital Signs Temp 100.2 F H 01/22/24 19:53 Pulse 89 01/22/24 21:41 Resp 18 01/22/24 21:41 BP 123/79 01/22/24 21:41 Pulse Ox 93 01/22/24 21:41 O2 Del Method Room Air 01/22/24 21:41 01/22/24 01/22/24 01/22/24 06:59 14:59 22:59 Intake Total 0 / 0 Balance 0 / 0 Weight last 48 hrs Weight 180 lb Physical Exam 2 Const: OTHER: GENERAL: Patient is alert, awake and oriented x3. HEART: Regular S1 and S2. No murmur, rub or gallop. LUNGS: Clear to auscultate bilaterally. CENTRAL NERVOUS SYSTEM: Grossly nonfocal. EXTREMITIES: Lower extremities with out edema bilaterally, pulses not palpable in both feet both legs are warm feet are cold but not icy cold sensation intact right leg patient cannot bend knee according to him this is not new and going on for months. No obvious ischemic discoloration Data 01/22/24 14:00 01/22/24 14:00 Micro: Microbiology 01/22/24 16:25 Blood Culture - Preliminary Blood SPECIMEN COLLECTED 01/22/24 16:20 Blood Culture - Preliminary Blood SPECIMEN COLLECTED A&P Assessment and plan (1) PAD (peripheral artery disease): Patient presentation is mixture of arthritis peripheral arterial disease and neuropathy, does not appear to be acute ischemic leg as this process is going on for the last 1 year and has worsened in last 1 month. Definitely he has severe peripheral arterial disease with absent pulses in both feet, CTA with runoff is concerning for multilevel mild to moderate to high-grade stenosis in femoral popliteal anterior posterior and peroneal vessels bilaterally. It appeared to me patient has critical limb ischemia therefore advised to start patient on heparin we will proceed with peripheral angiogram if stays here . Patient has multiple other comorbidities and may will be possibly transferred to [facility] as orthopedics specially dealing with wrist is not available here. In that case vascular surgery at [facility] can be consulted there for possible peripheral angiogram. If needed we will be happy to assist in his care during his stay in case no bed available. Continue aspirin statin and heparin. Pain control. Coding Level of Care Code Acute Code for [facility] Fwd Diagnoses PAD (peripheral artery disease) I73.9
[2024-01-22] MEDS: sodium chloride 0.9% 1,000 ML 999 ML IV (22:59)
[2024-01-22] MEDS: piperacillin-tazobactam 3.375 GM in sodium chloride 0.9% (plus) 50 ML IV (22:59)
[2024-01-23] MEDS: VANCOMYCIN ADD-Vantage 1,000 MG in 0.9% NaCl ADD-Vantage 250 ML 250 MG IV (00:15)
[2024-01-23 00:19] VITALS: BP 125/78; PULSE 78; RESP 20; O2SAT 96
[2024-01-23 00:33] VITALS: BP 125/78; PULSE 78; RESP 16; O2SAT 96
== END 2024-01-23 00:33 | disposition short-term general hospital (02) ==
PROVIDERS: Physician Assistant; Emergency Provider Emergency Medicine; PCP Nurse Practitioner Family
DX: L08.9 Local infection of the skin and subcutaneous tissue, unspecified (principal); I73.9 Peripheral vascular disease, unspecified; E11.40 Type 2 diabetes mellitus with diabetic neuropathy, unspecified; Z87.891 Personal history of nicotine dependence
CPT/HCPCS: 71045; 71275; 73110; 75635; 80053; 81001; 83605; 84145; 84550; 85025; 85651; 85730; 86140; 87040; 93926; 96365; 96366; 96375; 99285; J1644; J2543; J3370; J7030; J7050

== ENCOUNTER → 2024-03-04 08:26 | Outpatient (BNVA) | payer MEDICARE, SELFPAY | PROVIDERS: PCP Nurse Practitioner Family; Visit Provider Nurse Practitioner Family | DX: R39.15 Urgency of urination (principal); M00.9 Pyogenic arthritis, unspecified | CPT/HCPCS: 81000 ==

== ENCOUNTER → 2024-08-04 10:41 | Outpatient (BNVA) | payer MEDICARE, SELFPAY | PROVIDERS: PCP Nurse Practitioner Family; Visit Provider Nurse Practitioner Family | DX: N30.00 Acute cystitis without hematuria (principal) | CPT/HCPCS: 81000; 87086 ==

== ENCOUNTER 2024-08-15 12:46 | Outpatient (CLI) | payer MEDICARE, SELFPAY ==
--- NOTE | 2024-08-15 12:56 | XRR_ITS ---
PROCEDURE INFORMATION: Exam: XR Right Knee Exam date and time: 08/15/2024 1:08 PM Age: 74 years old Clinical indication: Right; Prior surgery; Surgery date: 6+ months; Surgery type: Bilat. Knees & lower back fusion; Pain in RT knee since replacement x few years. ; Additional info: M25.561 - pain in right knee TECHNIQUE: Imaging protocol: Radiologic exam of the right knee. Views: 3 views. COMPARISON: CT angio abd aorta runof [id number] 01/22/2024 5:05 PM FINDINGS: Bones/joints: Uncomplicated right TKA changes. No acute fracture or dislocation. Prominent atheromatous calcifications. Re-identified small diffuse skin/soft tissue dystrophic calcifications. Soft tissues: See Bones/joints finding. XR/XR knee RT 3V* [id number] IMPRESSION: No acute findings. See above
--- NOTE | 2024-08-15 12:56 | XRR_ITS ---
PROCEDURE INFORMATION: Exam: XR Right Hip Exam date and time: 08/15/2024 1:08 PM Age: 74 years old Clinical indication: Hip pain; Right hip; Prior surgery; Surgery date: 6+ months; Surgery type: Pain in RT knee since replacement x few years. ; Additional info: M25.551 - pain in right hip TECHNIQUE: Imaging protocol: Radiologic exam of the right hip. Views: 1 view hip with pelvis when performed. COMPARISON: CT angio abd aorta runof [id number] 01/22/2024 5:05 PM FINDINGS: Bones/joints: Prominent atheromatous calcifications. Diffuse osteopenia. Partially imaged lower lumbar spondylosis and lower lumbar spinal fusion hardware. Up to mild right hip DJD. No acute fracture or dislocation. Mild to moderate symphysis pubis DJD. Soft tissues: Unremarkable. XR/XR hip RT 2-3V wo/w pel* [id number] IMPRESSION: No acute findings. See above
== END 2024-08-15 12:47 | disposition home or self-care (01) ==
PROVIDERS: PCP Nurse Practitioner Family; Visit Provider Nurse Practitioner Family
DX: M16.11 Unilateral primary osteoarthritis, right hip (principal); M25.561 Pain in right knee; Z96.651 Presence of right artificial knee joint; I70.90 Unspecified atherosclerosis; M79.89 Other specified soft tissue disorders; Z98.1 Arthrodesis status; M47.896 Other spondylosis, lumbar region; M85.80 Other specified disorders of bone density and structure, unspecified site; M19.09 Primary osteoarthritis, other specified site
CPT/HCPCS: 73502; 73562

== ENCOUNTER 2024-09-30 14:02 | Outpatient (CLI) | payer MEDICARE, SELFPAY ==
--- NOTE | 2024-09-30 14:04 | XR_ITS ---
WS: [id number] Left ankle, 3 views, 09/30/2024 Clinical Data: M25.572 - Pain in left ankle and joints of left foot Comparison: None. Findings: No fractures or dislocations are seen. The ankle mortise is normal. The talus and calcaneus are unremarkable. No soft tissue swelling over the medial or lateral malleolus is seen. There are subcutaneous calcifications in the medial aspect of the distal left leg. There is a plantar spur. XR/XR ankle LT min 3V* [id number] Impression: Negative left ankle.
== END 2024-09-30 14:03 | disposition home or self-care (01) ==
LOC: RAD 14:04
PROVIDERS: PCP Nurse Practitioner Family; Visit Provider Nurse Practitioner Family
DX: M25.572 Pain in left ankle and joints of left foot (principal); M77.32 Calcaneal spur, left foot; R93.6 Abnormal findings on diagnostic imaging of limbs
CPT/HCPCS: 73610